=== PATIENT | male | born 1960 | race Caucasian/White ===

== ENCOUNTER 2019-06-19 18:53 | Inpatient (IN) | payer MEDICAID ==
[~2019-06-19] VITALS: Ht 175.3 cm; Wt 89.4 kg
[2019-06-19 18:57] VITALS: Ht 175.3 cm; Wt 89.4 kg
--- NOTE | 2019-06-19 19:07 | NUR ---
TO ROOM 15 FOR EVAL.
--- NOTE | 2019-06-19 19:14 | NUR ---
DR. MALONE AT BEDSIDE DISCUSSING POC WITH PT
--- NOTE | 2019-06-19 19:20 | NUR ---
PT. ARRIVED TO ER C/O EPIGASTRIC PAIN 05/10, CRAMPING, WITH N/V/D SINCE LAST NIGHT, PT. DENIES FEVER & CHILLS, DENIES URINARY SYMPTOMS, DENIES CHEST PAIN, PT. LAYING IN BED, AAOX4, NO ACUTE DISTRESS NOTED, POSITIONED FOR COMFORT, WILL MONITOR.
--- NOTE | 2019-06-19 19:57 | NUR ---
MEDICATED PER MD ORDER, PT. TOLERATED WELL, SEE EMAR
[2019-06-19 19:59] LABS: BASOPHIL % 0.5 % (0-2); PLATELET COUNT 228 x10^3mcL (130-400); RED CELL DISTRIBUTION WIDTH 13.9 % (11.5-14.5)
[2019-06-19 20:53] LABS: CALCIUM 10.6 mg/dL (8.5-10.1); CARBON DIOXIDE 21.1 mmol/L (21-32); CREATININE SERUM 2.9 mg/dL (0.7-1.3); POTASSIUM SERUM 4.4 mmol/L (3.5-5.1)
[2019-06-19 20:57] LABS: BILIRUBIN TOTAL 1.3 mg/dL (0.20-1.00)
[2019-06-19 20:58] LABS: ALBUMIN 5.2 g/dL (3.4-5.0); TOTAL PROTEIN, SERUM 9.7 g/dL (6.4-8.2)
[2019-06-19 21:33] LABS: MAGNESIUM 2.4 mg/dL (1.8-2.4); PHOSPHOROUS 4.1 mg/dL (2.5-4.9)
[2019-06-19 21:34] LABS: CHOLESTEROL/HDL RATIO 6.6
--- NOTE | 2019-06-19 21:50 | NUR ---
REPORT GIVEN TO JASON BEAD INSPECTOR
[2019-06-19 22:13] LABS: UA SPECIFIC GRAVITY >=1.030 (1.005-1.035); microscopic required? YES; urine erythrocyte TRACE (NEGATIVE)
[2019-06-19 22:30] LABS: AMPHETAMINE QUAL UR NONE DETECTED (See below)
[2019-06-19 22:44] VITALS: BP 113/59
--- NOTE | 2019-06-19 22:54 | NUR ---
RECEIVED PT FROM ER, PT ADMIT FOR DEHYDRATION, GASTROENTERITIS, PT IS A/O X4, VERBAL RESPONSIVE, LUNG SOUND CLEAR BILATERAL, NO COUGH, NO SOB, PT DENY ANY CHEST PAIN OR DISCOMFORT, BOWEL SOUND PRESENT ALL 4 QUADRANTS, NO DISTENTION, NO TENDER. C/O N/V AND DIARRHEA, PEDAL PULSE PRESENT BOTH FEET, NO EDEMA, IV AT LEFT FA, NO LEAKING, NO INFITLRATION. ALL ADLS ASSIST, ALL NEED MET, CALL LIGHT IN REACH, WILL COTNINUE TO MONITOR.
--- NOTE | 2019-06-19 23:26 | NUR ---
PT RESTING IN BED WITH NO ACUTE DISTRESS NOTED AT THIS TIME, PT RESTING ON LEFT SIDE AND STATES PAIN IS AT AN ACCEPTABLE LEVEL, ALL NEEDS ATTENDED TO SAFETY PRECAUTIONS IN PLACE, WILL CONTINUE TO MONITOR
--- NOTE | 2019-06-19 23:40 | NUR ---
PT REFUSED EKG AT THIS TIME AND WOULD LIKE DONE IN THE MORNING.
--- NOTE | 2019-06-20 01:56 | NUR ---
ASSUMED THE CARE FROM TAMEKA CROWDER, PT AWAKE ORIENTED X4 VERBAL, DENIES PAIN NO DIARRHEA AT THIS TIME, INSTRUCTED TO COLLECT STOOL SPECIMEN, FOR STOOL CULTURE AND WBC, PROVIDED SPEC CONTAINER, IVF INFUSING WELL ORDERED, CONT TO MONITOR.
--- NOTE | 2019-06-20 02:02 | NUR ---
PT RESTING IN BED RECIEVING LAST IV BOLUS NOW TOLERATING WELL, NO SIGNS OF PAIN OR SOB AT THIS TIME, PT IS CALM AND STABLE ENDORSED CARE TO JELLY ENGLISH
[2019-06-20 05:21] VITALS: BP 98/61
--- NOTE | 2019-06-20 06:15 | NUR ---
PT SLEPT WELL DURING THE SHIFT, AMBULATES TO THE BATHROOM INSTRUCTED TO COLLECT STOOL SPEC, BUT PT KEEP REMOVING THE SPEC CONTAINER PLACED IN THE TOILET BOWL, KEEP REMINDING NOT TO REMOVE IT, STILL WITH LOOSE STOOL X2, DENIES NAUSEA OR VOMITING, IVF INFUSING WELL ORDERED, ATTENDED NEEDS, CALL LIGHT AT REACH, CONT TO MONITOR.
[2019-06-20 06:24] LABS: BASOPHIL % 0.4 % (0-2); PLATELET COUNT 213 x10^3mcL (130-400)
[2019-06-20 06:39] LABS: CALCIUM 8.2 mg/dL (8.5-10.1); CARBON DIOXIDE 21.9 mmol/L (21-32); CREATININE SERUM 2.3 mg/dL (0.7-1.3); POTASSIUM SERUM 3.3 mmol/L (3.5-5.1)
--- NOTE | 2019-06-20 07:18 | NUR ---
RECEIVED PT FROM DELI BAKERY CLERK NURSE. PT RESTING IN BED, AOX4, RESP E/U ON RA. DENIES PAIN, SOB OR NAUSEA AT THIS TIME, NO ACUTE DISTRESS NOTED. IV TO LFA W/ NO SIGNS OF INFILTRATION, IVF INFUSING WELL. BED IN LOWEST POSITION NAD CALL LIGHT WITHIN REACH. WILL CONTINUE TO MONITOR.
[2019-06-20 08:10] VITALS: BP 88/51
--- NOTE | 2019-06-20 10:55 | NUR ---
PT CALLED [facility] AND WAS SEEN AT BEDSIDE. PT STATED THAT HE WAS SEEN BY DR. BURCIAGA AND DR. AGUIRRE WHO EXPLAINED THEIR PLAN OF CARE W/ HIM. DEPSITE THE INFORMATION PROVIDED, HE TOLD THEM HE WANTED TO LEAVE NOW. THEY INFORMED HIM HE MAY DO SO. AMA FORM WAS SIGNED BY PT AT THIS TIME. PT AOX4, RESP E/U ON RA, VS STABLE, DENIES PAIN AT THIS TIME. IV TO LFA REMOVED, CATH INTACT, GAUZE DRESSING APPLIED. AMBULATORY TO [facility]I, ESCORTED BY TAMEKA LOPEZ W/ NO ACUTE INCIDENCE.
--- NOTE | 2019-06-20 13:47 | NUR ---
Discount pharmacy card and list to low cost medical clinics given to patient by Freddy.
== END 2019-06-20 11:13 | disposition left against medical advice (07) | DRG 249 ==
LOC: ED 18:53 → MU 21:05
PROVIDERS: Emergency Medicine; ADMIT Internal Medicine
DX: E86.0 Dehydration (principal); K52.9 Noninfective gastroenteritis and colitis, unspecified; N17.0 Acute kidney failure with tubular necrosis; E78.5 Hyperlipidemia, unspecified; F17.210 Nicotine dependence, cigarettes, uncomplicated; E66.9 Obesity, unspecified; Z68.28 Body mass index [BMI] 28.0-28.9, adult; Z53.29 Procedure and treatment not carried out because of patient's decision for other reasons
CPT/HCPCS: 82962; 83880; 87046; 87046-59; 90732; G0378; J2405; J7030; Q0092

== ENCOUNTER 2019-11-08 11:18 | Emergency (ER) | payer OTHER ==
[~2019-11-08] VITALS: Ht 175.3 cm; Wt 97.1 kg
[2019-11-08 11:26] VITALS: Ht 175.3 cm; Wt 97.1 kg
[2019-11-08 12:00] LABS: BASOPHIL % 0.5 % (0-2); PLATELET COUNT 172 x10^3mcL (130-400)
[2019-11-08 12:08] LABS: CALCIUM 8.8 mg/dL (8.5-10.1); CARBON DIOXIDE 25.5 mmol/L (21-32); CHLORIDE SERUM 105 mmol/L (98-107); CREATININE SERUM 0.9 mg/dL (0.7-1.3); GFR1 > 60 mL/min; GLUCOSE SERUM 124 mg/dL (74-106); POTASSIUM SERUM 4.2 mmol/L (3.5-5.1); SODIUM SERUM 140 mmol/L (136-145)
[2019-11-08 12:12] LABS: ALBUMIN 3.9 g/dL (3.4-5.0); ALKALINE PHOSPHATASE 92 U/L (46-116); ALT/SGPT 43 U/L (16-63); AST/SGOT 18 U/L (15-37); TOTAL PROTEIN, SERUM 7.6 g/dL (6.4-8.2)
[2019-11-08 16:28] VITALS: BP 129/78
== END 2019-11-08 16:28 | disposition home or self-care (01) ==
LOC: ED 11:18
PROVIDERS: Emergency Medicine
DX: J18.9 Pneumonia, unspecified organism (principal); F17.210 Nicotine dependence, cigarettes, uncomplicated; K21.9 Gastro-esophageal reflux disease without esophagitis; R07.89 Other chest pain
CPT/HCPCS: 83880; 87804; 99406; J0696; J1885; J7030